=== PATIENT | male | born 1960 | race Caucasian/White ===

== ENCOUNTER → 2021-12-01 | Outpatient (CLI) | payer OTHER ==
--- NOTE | 2021-12-01 21:31 | CT ---
EXAMINATION TYPE: CT sinus wo con DATE OF EXAM: 12/01/2021 COMPARISON: None available HISTORY: chronic sinusitis CT DLP: 865.2 mGycm. Automated Exposure Control for Dose Reduction was Utilized. TECHNIQUE: CT scan of the sinuses is performed without contrast, axial images are obtained, coronal r eformatted images are also reviewed. FINDINGS: Suspected chronic nondisplaced fracture of the frontal process of the right maxillary bone with minim ally displaced fractures of the left lateral orbital wall. Slightly deviated bony nasal septum convex to the right side. Paradoxical middle turbinates. Unremarkable inferior turbinates. Patent infundibu lum bilaterally as well as ostiomeatal complexes. Unremarkable maxillary sinuses, sphenoid sinus and ethmoid air cells. Minimal mucosal thickening of t he medial aspect of the left frontal sinus compartment, otherwise unremarkable frontal sinuses. Clear sphenoethmoidal recesses. Clear visualized portion of the mastoid air cells. Unremarkable visualized portion of the brain and orbits. IMPRESSION: Minimal mucosal thickening of the medial aspect of the left frontal sinus compartment, otherwise unre markable paranasal sinuses. Chronic fractures as described above.
== END | disposition home or self-care (01) ==
LOC: RADCTMAIN 17:49
PROVIDERS: ATTEND Family Medicine
DX: J32.9 Chronic sinusitis, unspecified (principal)
CPT/HCPCS: 70486

== ENCOUNTER → 2023-12-25 | Outpatient (CLI) | payer OTHER ==
--- NOTE | 2023-12-28 13:43 | MR ---
EXAMINATION TYPE: MR cervical spine wo con DATE OF EXAM: 12/25/2023 6:03 PM CLINICAL INDICATION:Male, 63 years old with history of M50.121 CERVICAL DISC DISORDER AT C4-C5 LEVEL WITH; PHH, Neck pain that radiates down left arm and stops at elbow COMPARISON: None. TECHNIQUE: Multi planar, multi sequence imaging was performed utilizing: T1-weighted, T2-weighted, an d turbo inversion recovery imaging of the cervical spine. IV Contrast: cc (none if empty) FINDINGS: Alignment: The cervical vertebral bodies have preserved heights. Alignment is within normal limits gi kamila patient positioning. Bones: Bone signal is within normal limits. No abnormal bone marrow edema on inversion recovery seque nces. Cord: The spinal cord is unremarkable with regards to their signal intensity and morphology. Discs: Intervertebral disc signal is maintained. C2-C3: No significant disc pathology. The spinal canal is patent. No neural foraminal stenosis. C3-C4: No significant disc pathology. The spinal canal is patent. No neural foraminal stenosis. C4-C5: No significant disc pathology. The spinal canal is patent. No neural foraminal stenosis. C5-C6: No significant disc pathology. The spinal canal is patent. Bilateral facet and uncovertebral joint arthropathy are present with mild to moderate bilateral neural foraminal stenosis. C6-C7: No significant disc pathology. The spinal canal is patent. Bilateral facet and uncovertebral joint arthropathy are present with mild bilateral neural foraminal stenosis. C7-T1: No significant disc pathology. The spinal canal is patent. No neural foraminal stenosis. Other: None. IMPRESSION: 1. No evidence for disc herniation or significant spinal canal stenosis. 2. Mild disc degeneration with associated osteoarthritic changes. Neural foraminal stenosis worse at C5-C6 with mild to moderate bilateral neural foraminal stenosis.
== END | disposition home or self-care (01) ==
LOC: RADMRIMAIN 17:10
PROVIDERS: ATTEND Psychiatry & Neurology Neurology
DX: M50.121 Cervical disc disorder at C4-C5 level with radiculopathy (principal); M99.71 Connective tissue and disc stenosis of intervertebral foramina of cervical region
CPT/HCPCS: 72141

== ENCOUNTER → 2024-08-18 | Outpatient (CLI) | payer OTHER ==
--- NOTE | 2024-08-18 22:18 | CTL ---
EXAMINATION TYPE: CT Low Dose Lung DATE OF EXAM: 08/18/2024 6:44 PM COMPARISON: None available. CLINICAL INDICATION: Male, 64 years old with history of Z12.2 Screening; F17.210; Nicotine dependency of 1ppd x40 years, current smoker., history of tobacco use. TECHNIQUE: Multiple axial non-contrast scans were obtained from approximately the lung apices through the upper abdomen. Coronal and sagittal reformatted images were obtained. Low dose technique was uti lized. MIP were created on a separate workstation and submitted for review. CT DLP: 103.1 mGycm, Automated exposure control for dose reduction was used. CT Contrast: Contrast used: None Oral contrast used: None FINDINGS: Lack of intravenous contrast and low dose technique limits the evaluation of the vascular and soft ti ssue structures. Heart size within normal limits. No pericardial effusion. Calcified atherosclerotic disease of the th oracic aorta without aneurysmal dilatation. Nonspecific nonenlarged mediastinal lymph nodes. Calcifie d right hilar nodes. No pathologic axillary lymphadenopathy. Imaging through the lungs demonstrates calcified pleural plaques and pleural thickening in the bilate ral lung apices. No acute focal consolidation. No pleural effusion or pneumothorax. Scattered subcent imeter pulmonary nodules. For example, a 5 mm subpleural nodule in the right upper lobe (series 6 vel ge 100). No suspicious pulmonary nodule or pulmonary mass. Partially visualized upper abdomen demonstrates no acute abnormality. Indeterminate lesion in the sup erior left kidney measuring 4.4 cm demonstrating Hounsfield attenuation higher than that of simple fl uid. IMPRESSION: 1. No suspicious pulmonary nodule or pulmonary mass. 2. Indeterminate partially visualized 4.4 cm exophytic lesion in the superior left kidney demonstrat ing Hounsfield attenuation higher than a simple fluid. Recommend either correlation with previous out side imaging if available or further evaluation with dedicated ultrasound of the kidneys. CT LUNG RAD AND CT CHEST RECOMMENDATION: Lung-Rad 2 Benign Appearance or Behavior: Continue annual sc reening with LDCT in 12 months. S Modifier (other clinically significant findings): S Recommend smoking cessation (if current smoker), or continuation of smoking cessation (if prior smoke r). Annual screening for lung cancer with low-dose computed tomography is recommended in adults ages 55 to 77 years who have a 30 pack-year smoking history and currently smoke or have quit within the pa st 15 years. Screening should be discontinued once a person has not smoked for 15 years or develops a health problem that substantially limits life expectancy or the ability or willingness to have curat tomy lung surgery. Lung rads 2021 [email or web address] [facility], Workstation: [email or web address], 08/18/2024 10:15 PM
== END | disposition home or self-care (01) ==
LOC: RADCTMAIN 18:20
PROVIDERS: ATTEND Family Medicine
DX: Z12.2 Encounter for screening for malignant neoplasm of respiratory organs (principal); F17.210 Nicotine dependence, cigarettes, uncomplicated
CPT/HCPCS: 71271

== ENCOUNTER → 2024-09-02 | Outpatient (CLI) | payer OTHER ==
--- NOTE | 2024-09-02 13:46 | US ---
EXAMINATION TYPE: US kidneys/renal and bladder DATE OF EXAM: 09/02/2024 COMPARISON: CT 09/02/2024 CLINICAL INDICATION: Male, 64 years old with history of D49.519 Kidney ca; Abnormal CT; Patient denie s any other signs, symptoms, or relevant history TECHNIQUE: Grayscale imaging of the bilateral kidneys and urinary bladder: FINDINGS: EXAM MEASUREMENTS: Right Kidney: 12.0 x 5.4 x 5.7 cm Left Kidney: 11.0 x 5.5 x 5.8 cm Post Void Residual Volume: NA mL Right Kidney: wnl, no evidence for hydronephrosis, mass or renal calculus. Left Kidney: ? Hypoechoic vs anechoic area superiolateral pole = 4.3 x 5.2 x 4.2 cm Bladder: wnl Bilateral Jets seen: Yes Normal Post Void Residual: NA There is no evidence for hydronephrosis at this point in time. Cardiomegaly differentiation is mainta ined bilaterally. No nephrolithiasis is seen. No right renal masses identified. Superior-lateral ulises e left kidney 5.2 cm hypoechoic lesion which corresponds to prior CT. There is some internal echogeni city identified. Posterior acoustic enhancement identified. The urinary bladder is anechoic. Bilatera l ureteral jets identified. IMPRESSION: 1. No hydronephrosis or nephrolithiasis. 2. Left superior pole exophytic 5.2 cm indeterminate hypoechoic cystic lesion. May represent a protei naceous/hemorrhagic cyst versus other etiologies. Further evaluation with CT or MR abdomen with IV co ntrast renal mass protocol is recommended. [facility], , 09/02/2024 1:43 PM
== END | disposition home or self-care (01) ==
LOC: RADUSWWP 12:59
PROVIDERS: ATTEND Family Medicine
DX: D49.519 Neoplasm of unspecified behavior of unspecified kidney (principal); N28.89 Other specified disorders of kidney and ureter
CPT/HCPCS: 76770